=== PATIENT | female | born 1995 | race Two or more races ===

== ENCOUNTER → 2024-07-31 | Emergency (ER) | payer OTHER ==
[~2024-07-31] VITALS: Ht 167.6 cm; Wt 65.8 kg
[~2024-07-31] MED LIST: ALBUTEROL2.5 MG/3 M IH; GUAIFENESIN/DEXTROMETHORPHAN 10ML BLIST.PACK PO ONE; IPRATROPIU0.2 MG/1 M IH; IPRATROPIUM/ALBUTEROL SULFATE 3 ML AMPUL.NEB IH ONE; MEDROLPACK PO; METHYLPREDNISOLONE SOD SUCC 125 MG VIAL IV ONE; QC TUSSIN DM L118 ML PO; SINGULAIR10 MG PO; ZITHROMAX500 MG PO; ZYRTEC10 MG PO
[2024-07-31 15:56] LABS: HEMATOCRIT 39.9 % (36.0-45.00); HEMOGLOBIN 13.7 g/dL (12.0-15.00); MEAN CELL VOLUME 89.3 fL (80.00-100.00); MEAN CORPUSCULAR HEMOGLOBIN 30.7 pg (27.00-32.0); MEAN CORPUSCULAR HGB CONC 34.4 g/dl (32.0-36.0); PLATELET COUNT 271 K/uL (150-450); RED BLOOD COUNT 4.47 M/uL (4.00-6.00); RED CELL DISTRIBUTION WIDTH 13.9 % (11.5-14.5)
== END | disposition home or self-care (01) ==
LOC: ER 13:38
PROVIDERS: Nurse Practitioner Family
DX: J06.9 Acute upper respiratory infection, unspecified (principal); J00 Acute nasopharyngitis [common cold]; Z20.822 Contact with and (suspected) exposure to COVID-19